=== PATIENT | female | born 1980 | race Caucasian/White ===

== ENCOUNTER → 2024-01-05 16:39 | Outpatient (REF) | payer OTHER, SELFPAY | LOC: WDC 16:39 | PROVIDERS: ATTENDING PHYSICIAN Obstetrics & Gynecology; FAMILY PHYSICIAN Physician Assistant Medical | DX: Z12.31 Encounter for screening mammogram for malignant neoplasm of breast (principal); D27.1 Benign neoplasm of left ovary | CPT/HCPCS: 76830; 76856; 77063; 77067 ==

== ENCOUNTER → 2024-12-17 13:42 | Outpatient (REF) | payer OTHER, SELFPAY | LOC: RAD 13:42 | PROVIDERS: ATTENDING PHYSICIAN Urology; FAMILY PHYSICIAN Physician Assistant Medical | DX: N30.10 Interstitial cystitis (chronic) without hematuria (principal); M62.89 Other specified disorders of muscle; N39.3 Stress incontinence (female) (male); R33.9 Retention of urine, unspecified | CPT/HCPCS: 76770 ==

== ENCOUNTER → 2025-01-10 17:21 | Outpatient (REF) | payer OTHER, SELFPAY | LOC: RAD 17:21 | PROVIDERS: ATTENDING PHYSICIAN Obstetrics & Gynecology; FAMILY PHYSICIAN Physician Assistant Medical | DX: D27.1 Benign neoplasm of left ovary (principal) | CPT/HCPCS: 76857 ==

== ENCOUNTER 2025-02-18 07:29 | Outpatient (RCR) | payer OTHER, SELFPAY | END 2025-02-18 23:59 | disposition home or self-care (01) | LOC: RPT 07:29 | PROVIDERS: ATTENDING PHYSICIAN Urology; FAMILY PHYSICIAN Physician Assistant Medical | DX: O23.10 Infections of bladder in pregnancy, unspecified trimester (principal); N30.10 Interstitial cystitis (chronic) without hematuria; Z73.6 Limitation of activities due to disability; M54.50 Low back pain, unspecified; R10.30 Lower abdominal pain, unspecified; M62.81 Muscle weakness (generalized) | CPT/HCPCS: 97110; 97112; 97162 ==

== ENCOUNTER 2025-03-25 13:33 | Outpatient (RCR) | payer BC, SELFPAY | END 2025-03-25 23:59 | disposition home or self-care (01) | LOC: RPT 13:33 | PROVIDERS: ATTENDING PHYSICIAN Urology; FAMILY PHYSICIAN Physician Assistant Medical | DX: O23.10 Infections of bladder in pregnancy, unspecified trimester (principal); N30.10 Interstitial cystitis (chronic) without hematuria; Z73.6 Limitation of activities due to disability; M54.50 Low back pain, unspecified; R10.30 Lower abdominal pain, unspecified; M62.81 Muscle weakness (generalized) | CPT/HCPCS: 97112; 97140; 97530 ==

== ENCOUNTER 2025-04-01 11:19 | Outpatient (RCR) | payer BC, SELFPAY | END 2025-04-01 23:59 | disposition home or self-care (01) | LOC: RPT 11:19 | PROVIDERS: ATTENDING PHYSICIAN Urology; FAMILY PHYSICIAN Physician Assistant Medical | DX: O23.10 Infections of bladder in pregnancy, unspecified trimester (principal); N30.10 Interstitial cystitis (chronic) without hematuria; Z73.6 Limitation of activities due to disability; M54.50 Low back pain, unspecified; R10.30 Lower abdominal pain, unspecified; M62.81 Muscle weakness (generalized) | CPT/HCPCS: 97112; 97140 ==